=== PATIENT | male | born 1950 | race Caucasian/White ===

== ENCOUNTER → 2023-07-18 17:00 | Outpatient (REF) | payer MEDICARE, SELFPAY | LOC: HWRAD 17:00 | PROVIDERS: ATTENDING PHYSICIAN Internal Medicine | DX: M79.672 Pain in left foot (principal) | CPT/HCPCS: 73620 ==

== ENCOUNTER → 2023-12-23 13:50 | Outpatient (REF) | payer MEDICARE, SELFPAY | LOC: HWRAD 13:50 | PROVIDERS: ATTENDING PHYSICIAN Internal Medicine | DX: M25.572 Pain in left ankle and joints of left foot (principal); R06.02 Shortness of breath | CPT/HCPCS: 71046; 73620 ==

== ENCOUNTER → 2024-01-04 10:37 | Outpatient (REF) | payer MEDICARE, SELFPAY | LOC: HWRCS 10:37 | PROVIDERS: ATTENDING PHYSICIAN Internal Medicine | DX: R06.02 Shortness of breath (principal) | CPT/HCPCS: 93306 ==